=== PATIENT | female | born 1980 | race Caucasian/White ===

== ENCOUNTER 2017-06-17 13:17 | Emergency (ER) | payer OTHER ==
[2017-06-17 13:17] VITALS: BMI 28.7
[2017-06-17] MEDS ORDERED: Sodium Chloride 0.9% 1,000 ML IV ONE (14:37)
[2017-06-17] MEDS ORDERED: DiphenhydrAMINE 50 mg/ml Inj IVP STA (14:38)
[2017-06-17] MEDS ORDERED: DiphenhydrAMINE 50 mg/ml Inj ONE (14:47)
[2017-06-17] MEDS ORDERED: Sodium Chloride 0.9% 1,000 ML ONE (14:48)
[2017-06-17 15:16] LABS: BASO % 0.3 % (0.0-2.0); EOS % 0.1 % (0.0-4.0); HEMATOCRIT 39.1 % (34.0-47.0); LYMPH # 1.7 K/uL (1.0-4.3); LYMPH % 13.6 % (20.0-40.0); MEAN CORPUSCULAR HEMOGLOBIN 27.6 pg (27.0-31.0); MEAN CORPUSCULAR HGB CONC 32.5 g/dL (33.0-37.0); MEAN PLATELET VOLUME 8.8 fL (7.2-11.7); MONO # 0.5 K/uL (0.0-0.8); NRBC % 0.1 % (0.0-2.0); RED CELL DISTRIBUTION WIDTH 15.6 % (11.5-14.5); WHITE BLOOD COUNT 12.2 K/uL (4.8-10.8)
[2017-06-17 15:19] LABS: MEAN CELL VOLUME 84.8 fL (81.0-99.0)
--- NOTE | 2017-06-17 15:25 | C.PDOC ---
History Of Present Illness 36 year old female presents to the ED with complaints of a itching burning rash to the abdomen area since 5 pm yesterday. Patient states the rash began around the umbilicus and spread. She notes having an abdominoplasty in [place] on April 26, 2017 and wears a girdle daily. Patient states two days ago she received a treatment where "they injected a needle into my left and right side of my belly and release oxygen." She denies fever, nausea, vomiting, or other complaints at this time. Time Seen by Provider: 06/17/17 14:17 Chief Complaint (Nursing): Abnormal Skin Integrity History Per: Patient History/Exam Limitations: no limitations Onset/Duration Of Symptoms: Hrs (began at 5pm yesterday ) Current Symptoms Are (Timing): Still Present Location Of Injury: Right: Abdomen, Left: Abdomen Quality Of Symptoms: Painful (buring sensation ), Itching Recent travel outside of the [place]: No Past Medical History Reviewed: Historical Data, Nursing Documentation, Vital Signs Vital Signs: Last Vital Signs Temp 100.3 F H 06/17/17 16:26 Pulse 105 H 06/17/17 16:23 Resp 17 06/17/17 16:23 BP 116/78 06/17/17 16:23 Pulse Ox 100 06/17/17 16:47 - Medical History PMH: Asthma Surgical History: Cholecystectomy (2005) Family History: States: Unknown Family Hx - Social History Hx Alcohol Use: Yes Hx Substance Use: No - Immunization History Hx Tetanus Toxoid Vaccination: Yes Hx Influenza Vaccination: Yes Hx Pneumococcal Vaccination: (unk) Review Of Systems Constitutional: Negative for: Fever, Chills Respiratory: Negative for: Cough, Shortness of Breath Gastrointestinal: Negative for: Nausea, Vomiting, Abdominal Pain, Diarrhea Skin: Positive for: Rash (to abdomen area ) Physical Exam - Physical Exam Appears: Non-toxic, No Acute Distress Skin: Warm, Dry, Rash (Bright macular erythema patches with blanching to abdomen area. ), Other (Horizontal healing scar to the periumbilicus and suprapubic region, no swelling, no drainage) Head: Atraumatic, Normacephalic Eye(s): bilateral: Normal Inspection Oral Mucosa: Moist Neck: Supple Chest: Symmetrical, No Deformity Cardiovascular: Rhythm Regular Respiratory: Normal Breath Sounds, No Rales, No Rhonchi, No Wheezing Gastrointestinal/Abdominal: Bowel Sounds, Soft, No Tenderness, No Distention, No Guarding, No Rebound Back: Normal Inspection, No CVA Tenderness Extremity: Bilateral: Atraumatic, Normal Color And Temperature, Normal ROM Neurological/Psych: Oriented x3, Normal Speech, Normal Motor, Normal Sensation Gait: Steady ED Course And Treatment - Laboratory Results Result Diagrams: 06/17/17 15:08 06/17/17 15:08 Lab Interpretation: No Acute Changes O2 Sat by Pulse Oximetry: 100 (room air ) Pulse Ox Interpretation: Normal Progress Note: Blood work was ordered and patient was given Benadryl, Pepcid, Solu-medrol, and IV fluids. Reevaluation Time: 16:30 Reassessment Condition: Improved (Patient resting comfortably reports feeling sleepy, but pruritus has improved. Patient advised to continue with antihistamine and to follow up with PCP and not apply any new products to area.) Disposition - Disposition Referrals: [facility] [Outside] Disposition: HOME/ ROUTINE Disposition Time: 16:40 Condition: STABLE Additional Instructions: Your labs were normal Take benadryl every 6 hours Follow up with your primary doctor. Prescriptions: Desonide 15 gm TP BID #1 cream..g. DiphenhydrAMINE [Benadryl] 25 mg PO Q6 PRN #20 cap PRN Reason: Itching / Pruritus Instructions: Urticaria (ED) Forms: [facility] (Ukrainian) - POA Present On Arrival: None - Clinical Impression Clinical Impression: Allergic contact dermatitis - PA / MEDICAL OFFICE ASSISTANT INSTRUCTOR / Resident Statement MD/DO has reviewed & agrees with the documentation as recorded. - Scribe Statement The provider has reviewed the documentation as recorded by the Scribe Lucia Chin All medical record entries made by the Angela were at my direction and personally dictated by me. I have reviewed the chart and agree that the record accurately reflects my personal performance of the history, physical exam, medical decision making, and the department course for this patient. I have also personally directed, reviewed, and agree with the discharge instructions and disposition.
[2017-06-17 15:26] LABS: ALB/GLOB RATIO 1.3 (1.0-2.1); ALKALINE PHOSPHATASE 94 U/L (38-126); ALT/SGPT 61 U/L (9-52); AST/SGOT 53 U/L (14-36); BILIRUBIN,TOTAL 0.9 mg/dL (0.2-1.3); BLOOD UREA NITROGEN 5 mg/dL (7-17); CALCIUM 9.3 mg/dl (8.6-10.4); CARBON DIOXIDE 24 mmol/L (22-30); CHLORIDE 99 mmol/L (98-107); GFR AFRICAN-AMERICAN > 60; GLUCOSE,RANDOM 98 mg/dL (65-105); POTASSIUM 3.6 mmol/L (3.6-5.2); SODIUM 138 mmol/L (132-148)
[2017-06-17 16:24] VITALS: BP 116/78; PULSE 105; RESP 17; TEMP 100.3
[2017-06-17 16:46] VITALS: O2SAT 100
== END 2017-06-17 16:45 | disposition home or self-care (01) ==
LOC: C.ER 13:17
DX: L23.9 Allergic contact dermatitis, unspecified cause (principal)
CPT/HCPCS: 80053; 85025; 96361; 96374; 96375; 99283; J1200; J2930; J7040

== ENCOUNTER 2017-06-19 09:45 | Emergency (ER) | payer OTHER ==
[2017-06-19 09:45] VITALS: BMI 28.7
--- NOTE | 2017-06-19 10:18 | C.PDOC ---
History Of Present Illness 36 yr old female presents to the ER s/p abdominoplasty 2 weeks ago. Patient states she was healing well, however 4 days ago she developed a burning rash to the abdomen. Patient reports she was seen in ER 2 days ago and was given medications but the symptoms have worsened. Patient denies fever, chills, chest pain, SOB, nausea, vomiting, abdominal pain, diarrhea, back pain, weakness or numbness. Time Seen by Provider: 06/19/17 09:59 Chief Complaint (Nursing): Abnormal Skin Integrity History Per: Patient History/Exam Limitations: no limitations Onset/Duration Of Symptoms: Days (4 days) Recent travel outside of the [place]: Not to an Endemic Area Past Medical History Reviewed: Historical Data, Nursing Documentation, Vital Signs Vital Signs: Last Vital Signs Temp 98.9 F 06/19/17 15:05 Pulse 67 06/19/17 15:05 Resp 16 06/19/17 15:05 BP 104/67 06/19/17 15:05 Pulse Ox 98 06/19/17 15:05 - Medical History PMH: Asthma Surgical History: Cholecystectomy (2005) Family History: States: No Known Family Hx - Social History Hx Alcohol Use: Yes Hx Substance Use: No - Immunization History Hx Tetanus Toxoid Vaccination: Yes Hx Influenza Vaccination: Yes Hx Pneumococcal Vaccination: (unk) Review Of Systems Except As Marked, All Systems Reviewed And Found Negative. Constitutional: Negative for: Fever, Chills Cardiovascular: Negative for: Chest Pain Respiratory: Negative for: Shortness of Breath Gastrointestinal: Negative for: Nausea, Vomiting, Abdominal Pain, Diarrhea Musculoskeletal: Negative for: Back Pain Skin: Positive for: Rash (Burning rash to the abdomen) Neurological: Negative for: Weakness Physical Exam - Physical Exam Appears: Non-toxic, No Acute Distress Skin: Warm, Dry, Rash (large non-blanching rash to the mid abdomen, mid chest, right of mid back, which are tender with mild swelling) Head: Atraumatic, Normacephalic Eye(s): bilateral: Normal Inspection Oral Mucosa: Moist Tongue: Normal Appearing, No Swelling Lips: Normal Appearing, No Swelling Throat: No Erythema, No Exudate Neck: Normal ROM Chest: Symmetrical, No Tenderness Cardiovascular: Rhythm Regular, No Murmur Respiratory: Normal Breath Sounds, No Rales, No Rhonchi, No Wheezing Gastrointestinal/Abdominal: Normal Exam, Soft, No Tenderness, No Guarding, No Rebound Back: No CVA Tenderness Extremity: Normal ROM, No Swelling Neurological/Psych: Oriented x3, Normal Speech, Normal Motor Gait: Steady ED Course And Treatment - Laboratory Results Result Diagrams: 06/19/17 12:41 06/19/17 12:41 O2 Sat by Pulse Oximetry: 100 (RA) Pulse Ox Interpretation: Normal Medical Decision Making Medical Decision Making: PLAN: * Pepcid PO * Solumedrol IM The patient continues to have pain to the rash. Differential is urticaria, celllulitis, erysipelas, shingles. The patient was examined by Dr. Luciano who agrees with plan for lab work and possible admission as the patient developed fever and has worsened pain. There are no vesicles or signs of zoster. The rash is warm and tender to touch and will treat for possible cellulitis. On re-exam, the patient reports improvement of symptoms and is ambulatory in the ED with steady gait. The patient was offered admission for IV antibiotics but refuses to stay. She was given a dose of IV antibiotics and discharged with oral antibiotic and given strict instructions to return if worsened. Disposition - Disposition Referrals: Mustapha Butler MD [Staff Provider] - Disposition: HOME/ ROUTINE Disposition Time: 14:39 Condition: FAIR Additional Instructions: FOLLOW UP WITH THE MEDICAL DOCTOR/CLINIC WITHIN 1-2 DAYS WITHOUT FAIL. RETURN SOON POSSIBLE IF WORSENED. Prescriptions: Cephalexin [Keflex] 500 mg PO BID #19 capsule Naproxen [Naprosyn] 500 mg PO BID #20 tab Sulfamethoxazole/Trimethoprim [Bactrim DS 800 mg-160 mg] 1 tab PO BID #19 tab Instructions: Cellulitis (ED) Forms: [facility] (Colombian) - Clinical Impression Clinical Impression: Cellulitis, Erysipelas - PA / COLLECTIONS AND ARCHIVES DIRECTOR / Resident Statement MD/DO has reviewed & agrees with the documentation as recorded. - Scribe Statement The provider has reviewed the documentation as recorded by the Scribe Lilibeth Santana All medical record entries made by the Scribe were at my direction and personally dictated by me. I have reviewed the chart and agree that the record accurately reflects my personal performance of the history, physical exam, medical decision making, and the department course for this patient. I have also personally directed, reviewed, and agree with the discharge instructions and disposition.
[2017-06-19] MEDS ORDERED: MethylPREDNISolone 40 mg Vial IM STA (10:33)
[2017-06-19] MEDS ORDERED: MethylPREDNISolone 40 mg Vial ONE (10:42)
[2017-06-19 12:44] LABS: BASO % 0.2 % (0.0-2.0); EOS % 0.3 % (0.0-4.0); HEMATOCRIT 36.6 % (34.0-47.0); MEAN CELL VOLUME 84.7 fL (81.0-99.0); MEAN CORPUSCULAR HEMOGLOBIN 27.1 pg (27.0-31.0); MEAN PLATELET VOLUME 8.9 fL (7.2-11.7); MONO # 0.3 K/uL (0.0-0.8); MONO % 2.6 % (0.0-10.0); PLATELET COUNT 204 K/uL (130-400); RED CELL DISTRIBUTION WIDTH 15.3 % (11.5-14.5)
[2017-06-19 12:55] LABS: ALB/GLOB RATIO 1.2 (1.0-2.1); ALKALINE PHOSPHATASE 86 U/L (38-126); ALT/SGPT 54 U/L (9-52); AST/SGOT 32 U/L (14-36); BILIRUBIN,TOTAL 0.4 mg/dL (0.2-1.3); BLOOD UREA NITROGEN 11 mg/dL (7-17); CALCIUM 8.9 mg/dl (8.6-10.4); CARBON DIOXIDE 23 mmol/L (22-30); CHLORIDE 102 mmol/L (98-107); GFR AFRICAN-AMERICAN > 60; GLUCOSE,RANDOM 85 mg/dL (65-105); POTASSIUM 3.6 mmol/L (3.6-5.2); SODIUM 139 mmol/L (132-148); TOTAL PROTEIN 6.5 g/dL (6.3-8.3)
[2017-06-19 13:19] LABS: NEUTROPHIL 83 % (50-75); TOTAL CELLS COUNTED 100
[2017-06-19 13:21] LABS: LARGE PLATELETS PRESENT
[2017-06-19] MEDS ORDERED: ceFAZolin 1 gm FROZEN Premix 1 GM/50 ML ML IVPB ONE (14:24)
[2017-06-19 15:06] VITALS: BP 104/67; PULSE 67; RESP 16; TEMP 98.9
[2017-06-19 18:37] VITALS: O2SAT 100
== END 2017-06-19 15:07 | disposition home or self-care (01) ==
LOC: C.ER 09:45
DX: L03.319 Cellulitis of trunk, unspecified (principal); A46 Erysipelas
CPT/HCPCS: 80053; 85025; 87040; 96365; 96372; 99285; J0690; J1885; J2920

== ENCOUNTER 2017-10-01 08:40 | Emergency (ER) | payer OTHER ==
[2017-10-01 08:40] VITALS: BMI 28.7
[2017-10-01] MEDS ORDERED: Sodium Chloride 0.9% 1,000 ML IV STA (09:30)
--- NOTE | 2017-10-01 09:58 | C.PDOC ---
History Of Present Illness 37 y/o F c PSHx abdominoplasty in [place] 04/2017 p/w abdominal pain x 2 days. Patient reports abdominal distention with pain and erythema around umbilicus. Pain is nonradiating, moderate in severity. She denies fever, chills , vomiting, constipation, diarrhea. Patient states she had similar distention and pain in the past and was found to have an infection. She states it was initially treated as contact dermatitis but it did not improve and on video conferencing follow up, she was instructed to go back to ED and she obtained antibiotics. Time Seen by Provider: 10/01/17 09:17 Chief Complaint (Nursing): Abdominal Pain Past Medical History Vital Signs: Last Vital Signs Temp 97.7 F 10/01/17 08:56 Pulse 70 10/01/17 12:38 Resp 17 10/01/17 12:38 BP 99/62 L 10/01/17 12:38 Pulse Ox 100 10/01/17 12:38 - Medical History PMH: Asthma Denies: Chronic Kidney Disease Surgical History: Cholecystectomy (2005) Family History: States: No Known Family Hx - Social History Hx Alcohol Use: Yes Hx Substance Use: No - Immunization History Hx Tetanus Toxoid Vaccination: Yes Hx Influenza Vaccination: Yes (2015) Hx Pneumococcal Vaccination: (unk) Review Of Systems Except As Marked, All Systems Reviewed And Found Negative. Constitutional: Negative for: Fever Respiratory: Negative for: Shortness of Breath Physical Exam - Physical Exam Additional Physical Exam Comments: Constitutional: No acute distress. Head: Normocephalic. Atraumatic. Eyes: PERRL. ENT: Moist mucous membranes. Neck: Supple. Cardiovascular: Regular rate. Radial pulse 2+ bilaterally. Chest: No tenderness. Respiratory: Clear to auscultation bilaterally. GI: Mild abdominal distention. Epigastric/periumbilical tenderness with guarding. Erythema, induraction around umbilicus Back: No CVA tenderness. Musculoskeletal: No tenderness or swelling of extremities. Skin: No rash. Neurologic: Alert, no focal deficit. . ED Course And Treatment - Laboratory Results Result Diagrams: 10/01/17 09:58 10/01/17 09:58 O2 Sat by Pulse Oximetry: 100 (RA) Pulse Ox Interpretation: Normal Medical Decision Making Medical Decision Making: Check labs and CT to evaluate for cellulitis vs intra-abdominal collection. IMPRESSION: Localized the enlargement of and infiltration changes within the rectus abdominis musculature bilaterally. These findings likely represent a combination of granulation tissue scarring possibly some old hemorrhagic debris/ clot though superimposed infection not excluded. No drainable fluid collections. There is mild infiltration changes within the subcutaneous fat consistent with mild cellulitis. . The changes of the rectus abdominal musculature protrude posteriorly and bow with the anterior margin of the peritoneal cavity and results in mild compression of ventrally located loops of bowel however there does not appear to be breech serosal surface of or extension into the intraperitoneal cavity. . No evidence of free intraperitoneal air. Status post cholecystectomy with mild post cholecystectomy dilatation changes of the common bile duct. . There is also the very mild central periportal edema. Borderline hepatomegaly. Mild fatty hepatic infiltration. Small of right adnexal cyst. Prominent endometrial canal. Consider followup nonemergent pelvic ultrasound. Labs unremarkable. Patient prefers to be treated at home due to the holiday season approaching. Will administer IV dose of antibiotic and continue oral. Instructed to return to ED for worsening pain, fever, chills, vomiting, constipation, or any other problem. Advised acetaminophen/ibuprofen for pain, will prescribe Percocet as previous prescription from 2016 and discussed risks of addiction. Disposition - Disposition Disposition: HOME/ ROUTINE Disposition Time: 13:33 Condition: STABLE Prescriptions: Cephalexin [cephalexin] 500 mg PO BID #20 cap oxyCODONE/Acetaminophen [Percocet 5/325 mg Tab] 1 tab PO Q6 #15 tab Sulfamethoxazole/Trimethoprim [Bactrim DS 800 mg-160 mg] 1 tab PO BID #20 tab Instructions: Cellulitis (ED) Forms: [facility] (Kiswahili) - Clinical Impression Clinical Impression: Cellulitis - Scribe Statement The provider has reviewed the documentation as recorded by the Juan Franciscoibpraful Zhang All medical record entries made by the Angela were at my direction and personally dictated by me. I have reviewed the chart and agree that the record accurately reflects my personal performance of the history, physical exam, medical decision making, and the department course for this patient. I have also personally directed, reviewed, and agree with the discharge instructions and disposition.
[2017-10-01] MEDS ORDERED: Sodium Chloride 0.9% 1,000 ML ONE (10:00)
[2017-10-01] MEDS ORDERED: Morphine 4 MG/ML VIAL ONE (10:00)
[2017-10-01 10:01] LABS: BASO # 0.1 K/uL (0.0-0.2); BASO % 0.7 % (0.0-2.0); EOS # 0.1 K/uL (0.0-0.7); HEMATOCRIT 37.7 % (34.0-47.0); LYMPH # 1.8 K/uL (1.0-4.3); LYMPH % 19.3 % (20.0-40.0); MEAN CELL VOLUME 87.4 fL (81.0-99.0); MEAN CORPUSCULAR HEMOGLOBIN 29.9 pg (27.0-31.0); MEAN CORPUSCULAR HGB CONC 34.2 g/dL (33.0-37.0); MEAN PLATELET VOLUME 9.2 fL (7.2-11.7); MONO # 0.4 K/uL (0.0-0.8); RED CELL DISTRIBUTION WIDTH 15.5 % (11.5-14.5); WHITE BLOOD COUNT 9.1 K/uL (4.8-10.8)
[2017-10-01 10:26] LABS: ALB/GLOB RATIO 1.2 (1.0-2.1); ALKALINE PHOSPHATASE 58 U/L (38-126); ALT/SGPT 22 U/L (9-52); AST/SGOT 22 U/L (14-36); BILIRUBIN,TOTAL 1.1 mg/dL (0.2-1.3); BLOOD UREA NITROGEN 10 mg/dL (7-17); CARBON DIOXIDE 29 mmol/L (22-30); CHLORIDE 99 mmol/L (98-107); GFR AFRICAN-AMERICAN > 60; GLUCOSE,RANDOM 82 mg/dL (65-105); POTASSIUM 3.9 mmol/L (3.6-5.2); SODIUM 135 mmol/L (132-148); TOTAL PROTEIN 7.8 g/dL (6.3-8.3)
[2017-10-01 10:36] LABS: RBC URINE 4 /hpf (0-3); URINE BILIRUBIN NEGATIVE (NEGATIVE); URINE BLOOD 1+ (NEGATIVE); URINE COLOR Yellow (YELLOW); URINE GLUCOSE (UA) NORMAL (Normal); URINE HYALINE CAST 0-2 /lpf (0-2); URINE KETONE TRACE mg/dL (NEGATIVE); URINE LEUKOCYTE ESTERASE NEG Leu/uL (Negative); URINE PROTEIN NEGATIVE (NEGATIVE); URINE UROBILINOGEN NORMAL mg/dL (0.2-1.0); WBC URINE 1 /hpf (0-5)
[2017-10-01] MEDS ORDERED: Iodixanol 320 MG/ML 100 ML BOTTLE IV ONE (11:40)
--- NOTE | 2017-10-01 13:27 | CT ---
PROCEDURE: CT scan abdomen and pelvis dated 10/01/2017. HISTORY: Abdominal distention, tenderness and erythema in a patient status post tummy tuck. COMPARISON: No prior study available comparison. TECHNIQUE: Contiguous axial images of the abdomen and pelvis performed the following intravenous injection of approximately 100 cc Visipaque 320 contrast material. . . Coronal and Sagittal reformats generated. Radiation dose: Total exam DLP = 444.64 mGy-cm. This CT exam was performed using one or more of the following dose reduction techniques: Automated exposure control, adjustment of the mA and/or kV according to patient size, and/or use of iterative reconstruction technique. FINDINGS: LOWER THORAX: Lung bases clear. No infiltrate effusion or basilar pneumothorax. Heart size is within range of normal. No significant pericardial effusion. LIVER: The liver is upper limits of normal in size measuring approximately 18.0 cm in CC dimension. Mild diffuse fatty hepatic infiltration. No obvious hepatic mass collection or calcification. Portal and splenic veins are opacified. GALLBLADDER AND BILE DUCTS: Gallbladder has been surgically resected with metallic clips gallbladder fossa. Common bile duct is mildly dilated likely due to postcholecystectomy state. PANCREAS: The pancreas appears grossly unremarkable without masses collections or calcifications. SPLEEN: Spleen exhibits normal size and attenuation pattern without mass collection or calcification. ADRENALS: No adrenal lesions. KIDNEYS AND URETERS: Kidneys at its is symmetric nephrograms. No evidence of nephrolithiasis or hydronephrosis. BLADDER: Urinary bladder is physiologically distended. No evidence of intraluminal urinary bladder calculi. REPRODUCTIVE: The endometrial canal is prominent measuring approximately 2.5 cm in AP dimension. Consider followup pelvic ultrasound. There is small right adnexal cyst measuring approximately 2.15 cm in greatest dimension. APPENDIX: Unremarkable. BOWEL: Evaluation of the bowel is limited due to the lack of oral contrast material. Stomach is incompletely distended which is felt to account for thick-walled appearance. Visualized loops of small bowel exhibit normal contour and caliber. No evidence acute mechanical small bowel obstruction. The sigmoid colon is somewhat redundant part of which is a distended with air nonspecific however no evidence of acute mechanical bowel obstruction. . PERITONEUM: Localized the enlargement of and infiltration changes within the rectus abdominis musculature bilaterally. These findings likely represent a combination of granulation tissue scarring possibly some old hemorrhagic debris/clot though superimposed infection not excluded. No drainable fluid collections. There is mild infiltration changes within the subcutaneous fat consistent with mild cellulitis. . The changes of the rectus abdominal musculature protrude posteriorly and bow with the anterior margin of the peritoneal cavity and results in mild compression of ventrally located loops of bowel however there does not appear to be breech serosal surface of or extension into the intraperitoneal cavity. . No evidence of free intraperitoneal air for free fluid. . LYMPH NODES: Unremarkable. No enlarged lymph nodes. VASCULATURE: No evidence of abdominal aortic aneurysm. BONES: Very minor multilevel degenerative spondylosis of the lumbar spine. No acute compression fractures. OTHER FINDINGS: None. IMPRESSION: Localized the enlargement of and infiltration changes within the rectus abdominis musculature bilaterally. These findings likely represent a combination of granulation tissue scarring possibly some old hemorrhagic debris/clot though superimposed infection not excluded. No drainable fluid collections. There is mild infiltration changes within the subcutaneous fat consistent with mild cellulitis. . The changes of the rectus abdominal musculature protrude posteriorly and bow with the anterior margin of the peritoneal cavity and results in mild compression of ventrally located loops of bowel however there does not appear to be breech serosal surface of or extension into the intraperitoneal cavity. . No evidence of free intraperitoneal air. Status post cholecystectomy with mild post cholecystectomy dilatation changes of the common bile duct. . There is also the very mild central periportal edema. Borderline hepatomegaly. Mild fatty hepatic infiltration. Small of right adnexal cyst. Prominent endometrial canal. Consider followup nonemergent pelvic ultrasound.
[2017-10-01 14:56] VITALS: BP 101/56; PULSE 76; RESP 18; TEMP 98.2; O2SAT 99
== END 2017-10-01 15:00 | disposition home or self-care (01) ==
LOC: C.ER 08:40
DX: L03.311 Cellulitis of abdominal wall (principal)
CPT/HCPCS: 74177; 80053; 81001; 83690; 84703; 85025; 87040; 96361; 96365; 96375; 99285; J0690; J1885; J2270; J7040; Q9967